=== PATIENT | male | born 1980 | race Caucasian/White ===

== ENCOUNTER 2017-04-24 09:41 | Emergency (ER) | payer OTHER ==
[2017-04-24 12:06] LABS: BASOPHILS 0.1 % (0-2); EOSINOPHILS 0.2 % (0-7); HEMOGLOBIN 17.6 g/dL (13.5-17.5); IMMATURE GRANULOCYTES 0.5 % (0-5); MCH 31.7 pg (26.0-34.0); MCHC 35.2 g/dL (31.0-37.0); MCV 90.1 fL (80.0-100.0); MEAN PLATELET VOLUME 12.2 fL (7.4-10.4); MONOCYTES 7.3 % (2-11); NEUTROPHILS 79.9 % (40-80); PLATELET COUNT 131 10x3/uL (130-400); RBC 5.55 10x6/uL (4.20-6.10); RDW 12.6 % (11.5-14.5)
[2017-04-24 12:23] LABS: APTT 27.6 SECONDS (22.8-39.4); INR 1.02 (0.85-1.17); PROTIME 13.2 SECONDS (11.6-15.0)
[2017-04-24 12:24] LABS: ALBUMIN 3.9 g/dL (3.4-5.0); ALKALINE PHOSPHATASE 100 U/L (46-116); ALT (SGPT) 29 U/L (10-68); BILIRUBIN - TOTAL 0.55 mg/dL (0.2-1.3); CALC OSMOLALITY 278 mosm/kg (275-300); CALCIUM 8.6 mg/dL (8.5-10.1); CARBON DIOXIDE 22.8 mmol/L (21.0-32.0); CHLORIDE - SERUM 107 mmol/L (98-107); CREATININE - SERUM 0.9 mg/dL (0.6-1.3); GLUCOSE 102 mg/dL (74-106); POTASSIUM - SERUM 4.1 mmol/L (3.5-5.1); PROTEIN - SERUM 7.2 g/dL (6.4-8.2); SODIUM 140 mmol/L (136-145); UREA NITROGEN 12 mg/dL (7-18); eGFR NON AFRICAN AMERICAN > 90 mL/min (90-120)
== END 2017-04-24 14:05 | disposition other institution (70) ==
LOC: D.ER 09:41
PROVIDERS: Nurse Practitioner Family
DX: S22.089A Unspecified fracture of T11-T12 vertebra, initial encounter for closed fracture (principal); S32.10XA Unspecified fracture of sacrum, initial encounter for closed fracture; S32.039A Unspecified fracture of third lumbar vertebra, initial encounter for closed fracture; W13.2XXA Fall from, out of or through roof, initial encounter; Y93.89 Activity, other specified; Y92.028 Other place in mobile home as the place of occurrence of the external cause

== ENCOUNTER 2017-07-12 23:52 | Emergency (ER) | payer OTHER | END 2017-07-13 01:45 | disposition home or self-care (01) | LOC: D.ER 23:52 | DX: J11.1 Influenza due to unidentified influenza virus with other respiratory manifestations (principal) ==

== ENCOUNTER 2019-02-19 22:09 | Emergency (ER) | payer OTHER ==
[~2019-02-19] VITALS: Ht 170.2 cm; Wt 83.6 kg
[2019-02-19 22:13] VITALS: Ht 170.2 cm; Wt 83.6 kg
[2019-02-19] MEDS ORDERED: VOLTAREN75 MG PO (22:38)
[2019-02-19] MEDS ORDERED: TYLENOL W/CODEI1 TAB PO (22:38)
[2019-02-19] MEDS ORDERED: CLEOCIN HCL300 MG PO (22:38)
[2019-02-19 23:46] VITALS: BP 138/90
--- NOTE | 2019-02-20 00:49 | NUR ---
DR ANTOINE NOTIFIED AND REVIEWED PT's BEHAVIOR AND ASSESSMENT RESULTS. PT IS ALOW RISK PER DR ANTOINE. DR ANTOINE STATED TO GIVE RESOURCES TO PT AT TIME OF DISCHERGE. NO FURTHER ORDERS AT THIS TIME. RESOURCES REVIEWED WITH PT AND SHE VERBALIZED UNDERSTANDING.
== END 2019-02-19 23:46 | disposition home or self-care (01) ==
LOC: D.ER 22:09
DX: K04.7 Periapical abscess without sinus (principal); F17.200 Nicotine dependence, unspecified, uncomplicated